=== PATIENT | male | born 1985 | race Caucasian/White ===

== ENCOUNTER → 2020-08-06 11:12 | Outpatient (BNVA) | payer OTHER, SELFPAY | PROVIDERS: Family Provider Nurse Practitioner Family; PCP Registered Nurse; Visit Provider Registered Nurse | DX: I10 Essential (primary) hypertension (principal); Z79.899 Other long term (current) drug therapy | CPT/HCPCS: 80053; 80061 ==

== ENCOUNTER → 2021-05-06 15:20 | Outpatient (BNVA) | payer OTHER, SELFPAY | PROVIDERS: Family Provider Nurse Practitioner Family; PCP Registered Nurse; Visit Provider Nurse Practitioner Family | DX: R50.9 Fever, unspecified (principal); R05 Cough; Z20.822 Contact with and (suspected) exposure to COVID-19 | CPT/HCPCS: 87635; 87880 ==

== ENCOUNTER → 2021-09-13 08:34 | Outpatient (BNVA) | payer OTHER, SELFPAY | PROVIDERS: Family Provider Nurse Practitioner Family; PCP Registered Nurse; Visit Provider Registered Nurse | DX: Z02.89 Encounter for other administrative examinations (principal); Z78.9 Other specified health status | CPT/HCPCS: 80053; 80061 ==

== ENCOUNTER 2022-04-26 09:20 | Emergency (ER) | payer OTHER, SELFPAY ==
[2022-04-26 09:25] VITALS: BP 163/99; PULSE 75; RESP 18; TEMP 36.4; O2SAT 99; BMI 30.5
[2022-04-26 09:29] VITALS: BP 146/92; PULSE 66; O2SAT 98
--- NOTE | 2022-04-26 09:33 | ED_ITS ---
HPI - Animal Bite General: Chief Complaint: Animal Bite Stated Complaint: animal bite Time Seen by Provider: 04/26/22 09:26 Source: patient Mode of arrival: ambulatory Limitations: no limitations History of Present Illness: Patient is a 36-year-old male who presents to ED today with a complaint of a raccoon bite to his left middle finger that he sustained just earlier this morning after he had trapped the animal and was trying to remove it from the cage. Last tetanus was approximately 10 years ago. complaint: animal bite Onset (ago): hour(s) Animal: other (raccoon) Description of animal: wild animal Mechanism: bite Location: other (finger) Context: other (had caged/trapped the animal) Associated symptoms: Reports no associated symptoms; Deny chills or fever(s) Related Data: Patient tetanus UTD: No Review of Systems Const: Denies: fever(s), chills, body aches, fatigue or malaise Card: Denies: chest pain Resp: Denies: dyspnea GI: Denies: abdominal pain, nausea, vomiting or diarrhea Musc: Reports: extremity pain (L middle finger); Denies: extremity swelling, joint pain or joint swelling Skin/Breast: Reports: other (animal bite) Neuro: Denies: numbness in extremities, sensory changes or dizziness PFSH ED PFSH: Medical History Essential hypertension Surgical History Hx of hernia repair Social History Smoking and tobacco status: never smoked Alcohol intake: never Adopted: No Caregiver/support person: No Lives independently: No Household members: spouse Marital status: Current occupational status: employed Sexually active: Yes Physical Exam Const: COMMON NORMALS: no acute distress, patient oriented x3, no limitations and alert GENERAL APPEARANCE: cooperative Extremity: GENERAL: Yes normal exam except as noted LEFT UPPER EXTREMITY: Yes hand & digits OTHER: pt has bite to distal portion of L middle finger w/o swelling, redness, or drainage Neuro: COMMON NORMALS: patient oriented x3, moves all extremities, no focal motor deficits and no sensory deficits noted SENSORIUM/ORIENTATION: Yes alert Course Vital Signs: Vital signs: Vital Signs Temperature 97.6 F 04/26/22 09:25 Pulse Rate 75 04/26/22 09:25 Respiratory Rate 18 04/26/22 09:25 Blood Pressure 163/99 04/26/22 09:25 Pulse Oximetry 99 04/26/22 09:25 MDM - Animal Bite Medical Decision Making Patient's tetanus will be updated. He will be placed on oral antibiotics. Rabies PEP is indicated and was initiated today. He will be given schedule for remainder of vaccines on days 3, 7, and 14. Return to ED precautions given. Discharge Plan Discharge Patient Disposition: Home Clinical Impression: Raccoon bite Qualifiers: Encounter type: initial encounter Qualified Code(s): W55.51XA - Bitten by raccoon, initial encounter Condition: Stable Prescriptions: New amoxicillin-pot clavulanate 875-125 mg tablet 1 tab PO BID Qty: 14 0RF No Action pantoprazole 20 mg tablet,delayed release (DR/EC) See Rx Instructions .ROUTE .COMPLEX Qty: 90 0RF Dose Instruction: TAKE 1 TABLET BY MOUTH DAILY Rx Instructions: TAKE 1 TABLET BY MOUTH DAILY metoprolol succinate 100 mg tablet extended release 24 hr See Rx Instructions .ROUTE .COMPLEX Qty: 90 0RF Dose Instruction: TAKE 1 TABLET BY MOUTH DAILY Rx Instructions: TAKE 1 TABLET BY MOUTH DAILY Discharge Orders: Discharge ED (Routine); Ordered 04/26/22 Ordered By: Luh Harkins Referrals: Bette Diaz FNP [Primary Care Provider] - Patient Instructions: Rabies Vaccine (By injection), Rabies Immune Globulin (By injection), Animal Bite (ED) Activity Restrictions/Additional Instructions: You should have received a schedule for your repeat rabies vaccinations that need to be completed on days 3, 7, and 14. They should be able to be completed at urgent care sometimes to your primary care office. You might call ahead of time to confirm availability of the vaccine. If they are unable to complete this you may return to the emergency department. Coding Level of Care Code ED Lens Grinding Machine Operator for John Yarbrough
[2022-04-26] MEDS: rabies vaccine 2.5 unit SDV IM (10:29)
[2022-04-26] MEDS: tetanus-dipt-pertussis 0.5 mL SDV IM (10:32)
[2022-04-26 10:57] VITALS: BP 153/97; PULSE 62; O2SAT 96
== END 2022-04-26 10:52 | disposition home or self-care (01) ==
PROVIDERS: Emergency Provider Physician Assistant; PCP Registered Nurse
DX: S61.253A Open bite of left middle finger without damage to nail, initial encounter (principal); W55.51XA Bitten by raccoon, initial encounter; I10 Essential (primary) hypertension; Z23 Encounter for immunization; Z20.3 Contact with and (suspected) exposure to rabies; Z29.14 Encounter for prophylactic rabies immune globulin
CPT/HCPCS: 90375; 90471; 90675; 90715; 96372; 99284

== ENCOUNTER → 2023-02-28 08:36 | Outpatient (BNVA) | payer OTHER, SELFPAY | PROVIDERS: PCP Registered Nurse; Visit Provider Registered Nurse | DX: I10 Essential (primary) hypertension (principal) | CPT/HCPCS: 80053; 80061; 85025 ==

== ENCOUNTER → 2023-08-28 08:54 | Outpatient (BNVA) | payer OTHER, SELFPAY | PROVIDERS: PCP Registered Nurse; Visit Provider Registered Nurse | DX: Z02.89 Encounter for other administrative examinations (principal); I10 Essential (primary) hypertension; K29.60 Other gastritis without bleeding | CPT/HCPCS: 80053; 80061; 85025 ==

== ENCOUNTER 2024-06-07 08:54 | Outpatient (CLI) | payer OTHER, SELFPAY ==
--- NOTE | 2024-06-07 09:02 | XR_ITS ---
WS: [id number] Examination: XR chest 2V* [id number] Reason for Exam: R91.1 - Solitary pulmonary nodule Date: 06/07/2024 Comparison: 12/25/2017 Findings: The cardiomediastinal silhouette is within normal limits. There is no effusion or consolidation. There is a right lower lung calcified granuloma Round densities are projected over each lateral chest. These are thought to represent extraneous butt ons. XR/XR chest 2V* [id number] Impression: No acute lung process is seen.
== END 2024-06-07 08:55 | disposition home or self-care (01) ==
PROVIDERS: PCP Registered Nurse; Visit Provider Registered Nurse
DX: R91.1 Solitary pulmonary nodule (principal); J84.10 Pulmonary fibrosis, unspecified; J98.4 Other disorders of lung
CPT/HCPCS: 71046

== ENCOUNTER → 2024-09-13 11:33 | Outpatient (BNVA) | payer OTHER, SELFPAY | PROVIDERS: PCP Registered Nurse; Visit Provider Registered Nurse | DX: Z13.6 Encounter for screening for cardiovascular disorders (principal); Z02.89 Encounter for other administrative examinations | CPT/HCPCS: 80061; 82962 ==

== ENCOUNTER → 2025-08-21 08:26 | Outpatient (BNVA) | payer OTHER, SELFPAY | PROVIDERS: PCP Registered Nurse; Visit Provider Registered Nurse | DX: I10 Essential (primary) hypertension (principal); Z13.1 Encounter for screening for diabetes mellitus | CPT/HCPCS: 80053; 80061; 83036; 85025 ==